=== PATIENT | female | born 1980 | race Caucasian/White ===

== ENCOUNTER 2025-09-22 09:37 | Emergency (ER) | payer MEDICAID ==
[~2025-09-22] VITALS: Ht 152.4 cm; Wt 60.0 kg
[2025-09-22 09:52] VITALS: O2SAT 99
[2025-09-22 10:33] LABS: BASOPHILS % 0.6 % (0.0-2.0); EOSINOPHILS % 3.6 % (0.0-5.0); HEMATOCRIT. 38.7 % (36.0-48.0); HEMOGLOBIN. 13.1 g/dL (12.0-16.0); LYMPHOCYTES % 33.1 % (20.0-50.0); MEAN PLATELET VOLUME 9.3 fl (7.4-10.4); MONOCYTES % 7.3 % (2.0-8.0); NEUTROPHILS % 55.4 % (40.0-76.0); PLATELET 197 x1000/uL (130-400); RED BLOOD CELL COUNT 4.52 mill/uL (4.2-5.4); RED CELL DISTRIBUTION WIDTH 13.8 % (11.6-14.6)
[2025-09-22 10:42] LABS: CREATININE 0.7 mg/dL (0.6-1.0); UREA NITROGEN BLOOD 10 mg/dL (9-23)
[2025-09-22 10:44] LABS: TROPONIN I HIGH SENSITIVITY < 4 ng/L (3.0-34)
[2025-09-22] MEDS: SODIUM CHLORIDE 0.9% 1,000 ML IV ONE (10:48)
[2025-09-22] MEDS: METOCLOPRAMIDE HCL 10MG/2ML VIAL IV ONE (10:56)
[2025-09-22 12:20] VITALS: BP 118/65; PULSE 65; RESP 17; TEMP 36.9; O2SAT 99
== END 2025-09-22 12:21 | disposition home or self-care (01) ==
LOC: ER 09:37 → CANBEDREQ 11:51 → ER 12:21
DX: M94.0 Chondrocostal junction syndrome [Tietze] (principal)
CPT/HCPCS: 80048; 85025; 84484; 36415; 71045; 93005; 96361; 96374; 99285; J2765; J7030; Z7610 ×3; A4606